=== PATIENT | female | born 1965 | race Caucasian/White ===

== ENCOUNTER → 2019-09-18 | Outpatient (CLI) | payer BC ==
[2019-09-18 07:23] LABS: ALANINE AMINOTRANSFERASE 27 IU/L (0-55); ALKALINE PHOSPHATASE 106 IU/L (40-150); BLOOD UREA NITROGEN 10 mg/dL (7-26); BUN/CREATININE RATIO 13 (6-25); CALCIUM 9.7 mg/dL (8.4-10.2); CARBON DIOXIDE 23 mmol/L (22-29); CHLORIDE 105 mmol/L (98-107); CHOL/HDL RATIO 5.6 (3.0-3.6); CHOLESTEROL 212 MD/DL (0-199); CREATININE, SERUM 0.76 mg/dL (0.57-1.11); EST GLOMERULAR FILTRATION RATE > 60 ML/MIN (60-); GLUCOSE 148 mg/dL (74-118); HDL CHOLESTEROL 38 MG/DL (40-60); SODIUM 140 mmol/L (136-145); TRIGLYCERIDES 446 MG/DL (0-149)
[2019-09-18 07:44] LABS: FREE T4 (FREE THYROXINE) 0.91 ng/dL (0.8-1.8)
[2019-09-19 20:16] LABS: MICROALBUMIN/CREATININE RATIO <7
== END ==
LOC: LAB 06:50
PROVIDERS: ATTEND Internal Medicine
DX: E11.65 Type 2 diabetes mellitus with hyperglycemia (principal)
CPT/HCPCS: 36415; 80053; 80061; 82044; 82570; 83036; 84439; 84443

== ENCOUNTER 2019-12-25 10:01 | Emergency (ER) | payer BC ==
[~2019-12-25] VITALS: Ht 162.6 cm; Wt 79.4 kg
[2019-12-25] MEDS ORDERED: CEPHALEXIN500 MG PO (10:26)
[2019-12-25] MEDS ORDERED: CLINDAMYCIN HC150 MG PO (10:27)
[2019-12-25] MEDS ORDERED: TRIMETHOPRIM/SULFAMETHOXAZOLE 160-800 MG TAB ONE (10:32)
[2019-12-25] MEDS ORDERED: TRIMETHOPRIM/SULFAMETHOXAZOLE 160-800 MG TAB PO ONE (10:45)
--- OUTSIDE RECORDS SUMMARY | 2019-12-25 10:45 | XMS REPORT | Continuity of Care Document ---
Author Author Gerardo Falk [employer] Address Unknown Phone Unavailable Care Team Providers Care Supervisor [employer] Name Role Phone [employer] Unavailable Un available Problems Problem Status Onset Date Classification Date Reported Comments Source CHEST PAIN/SOB Active 09/04/2011 [facility] CHEST PAIN/DM Active 09/04/2011 [facility] Chest pain Active Problem 09/07/2011 [facility] DM - Diabetes mellitus Active Problem 09/07/2011 [facility] Medications Medication Details Route Status Patient Instructions Ordering Provider Order Date Source aspirin 325 mg tablet, enteric coated 325 mg, 1 tab, Route: PO, Drug form: ECTAB, Daily, Start date: 09/05/11 9:00:00, Duration: 30 day, Stop date: 10/04/11 9:00:00 PO No Longer Active [facility] 09/05/2011 [facility] Saline Flush 0.9% 5 ml, Route: IVP, Drug Form: INJ, Q12H, Start date: 09/04/11 21:00:00, Duration: 30 day, Stop date: 10/04/11 9:00:00 IVP No Longer Active [facility] 09/05/2011 [facility] metoprolol tartrate 25 mg, 1 t ab, Route: PO, Drug form: TAB, Q6H, Start date: 09/04/11 18:00:00, Duration: 30 day, Stop date: 10/04/11 12:00:00 PO No Longer Active [facility] 09/04/2011 [facility] nitroglycerin 2% ointment 1 in ch, Route: TOP, Drug Form: OINT, TID, Start date: 09/04/11 17:00:00, Duration: 30 day, Stop date: 10/04/11 13:00:00 TOP No Longer Active [facility] 09/04/2011 [facility] atropine 0.5 mg, 5 mL, Route: IVP, Drug form: INJ, PRN, PRN Bradycardia, Start date: 09/04/11 15:39:00, Duration: 30 day, Stop date: 10/04/11 15:38:00 IVP No Longer Active [facility] 09/04/2011 [facility] acetaminophen 650 mg, Route: P O, Drug form: TAB, ONCE, PRN Pain, Priority: STAT, Start date: 09/04/11 15:06:00, Stop date: 10/04/11 15:05:00 PO No Longer Active [facility] 09/04/2011 [facility] Saline Flush 0.9% 5 ml, Route: IVP, Drug Form: INJ, PRN, PRN Line Flush, Start date: 09/04/11 14:48:00, Duration: 30 day, Stop date: 10/04/11 14:47:00 IVP No Longer Active [facility] 09/04/2011 [facility] ondansetron 4 mg, 2 mL, Route: IVP, Drug form: INJ, Q6H, PRN Nausea & Vomiting, Start date: 09/04/11 14:48:00, Duration: 30 day, Stop date: 10/04/11 14:47:00 IVP No Longer Active [facility] 09/04/2011 [facility] ALPRAZOLam 0.25 mg, 1 tab, Rou te: PO, Drug form: TAB, Q8H, PRN Anxiety, Start date: 09/04/11 14:48:00, Duration: 30 day, Stop date: 10/04/11 14:47:00 PO No Longer Active [facility] 09/04/2011 [facility] morphine Sulfate 2 mg, 1 mL, R oute: IVP, Drug form: INJ, Q3H, PRN Pain Score 4-6, Start date: 09/04/11 14:48:00, Duration: 30 day, Stop date: 10/04/11 14:47:00 IVP No Longer Active [facility] 09/04/2011 [facility] acetaminophen 650 mg, 2 tab, R oute: PO, Drug form: TAB, Q4H, PRN Pain/Fever, Start date: 09/04/11 14:48:00, Duration: 30 day, Stop date: 10/04/11 14:47:00 PO No Longer Active [facility] 09/04/2011 [facility] acetaminophen-hydrocodone 325 mg-5 mg oral tablet 1 tab, Route: PO, Drug Form: TAB, Q4H, PRN Pain Score 1-3, Start date: 09/04/11 14:48:00, Duration: 30 day, Stop date: 10/04/11 14:47:00 PO No Longer Active [facility] 09/04/2011 [facility] Saline Flush 0.9% 5 ml, Route: IVP, Drug Form: INJ, PRN, PRN Line Flush, Start date: 09/04/11 14:46:00, Duration: 30 day, Stop date: 10/04/11 14:45:00 IVP No Longer Active [facility] 09/04/2011 [facility] morphine Sulfate 2 mg, 1 mL, R oute: IVP, Drug form: INJ, Q2H, PRN Pain, Start date: 09/04/11 14:46:00, Duration: 30 day, Stop date: 10/04/11 14:45:00 IVP No Longer Active [facility] 09/04/2011 [facility] nitroglycerin SL Tab 0.4 mg, 1 tab, Route: SL, Drug form: TAB, Q5Min, PRN Chest Pain, Start date: 09/04/11 14:46:00, Duration: 3 doses or times, Stop date: Limited # of times SL No Longer Active [facility] 09/04/2011 [facility] insulin aspart 5 unit, 0.05 mL , Route: SUB-Q, Drug form: SOLN, TID-Before Meals, PRN Blood Glucose Results, Start date: 09/04/11 14:46:00, Duration: 30 day, Stop date: 10/04/11 14:45:00 SUB-Q No Longer Active [facility] 09/04/2011 [facility] Dextrose 50% Syringe 12.5 gm, 25 mL, Route: IVP, Drug Form: INJ, PRN, PRN Blood Glucose Results, Start date: 09/04/11 14:46:00, Duration: 30 day, Stop date: 10/04/11 14:45:00 IVP No Longer Active [facility] 09/04/2011 [facility] glucagon 1 mg, Route: IM, Drug form: PDR/INJ, PRN, PRN Blood Glucose Results, Start date: 09/04/11 14:46:00, Duration: 30 day, Stop date: 10/04/11 14:45:00 IM No Longer Active [facility] 09/04/2011 [facility] metFORmin 500 mg oral tablet 5 00 mg, 1 tab, PO, Daily, 30 tab, Substitution Allowed PO Active 09/04/2011 [facility] metoprolol tartrate 25 mg, Rou te: PO, Drug form: TAB, ONCE, Priority: STAT, Start date: 09/04/11 11:16:00, Stop date: 09/04/11 11:16:00 PO No Longer Active [facility] 09/04/2011 [facility] nitroglycerin 2% ointment 1 in ch, Route: TOP, Drug Form: OINT, ONCE, STAT, Start date: 09/04/11 11:16:00, Stop date: 09/04/11 11:16:00 TOP No Longer Active [facility] Sodium Chloride 0.9% (Bolus) IV 500 mL 500 mL, Rate: 500 ml/hr, Infuse over: 1 hr, Route: IV, kg, Total Volume: 500, Bolus Dose, Priority: STAT, Start date: 09/04/11 11:16:00, Duration: 1 doses or times, Stop date: 09/04/11 12:15:00 IV No Longer Active [facility] 09/04/2011 [facility] Allergies, Adverse Reactions, Alerts No Known Medication Allergies Immunizations No Data Provided for This Section Results Order Name Results Value Reference Range Date Interpretation Comments Source BEDSIDE GLUCOSE TESTING Comment1 Notify RN/ 09/05/2011 NA [facility] BEDSIDE GLUCOSE TESTING Gluc POC Lif scn 141 70 - 99 09/05/2011 [facility] <sup>1</sup>Interpretive Data: Upper Reportable Limit: 200 mg/dL. [facility] CHEMISTRY TSH 3.030 0.360 - 3.740 09/05/2011 Normal [facility] CHEMISTRY Creatinine Lvl 0.9 0.5 - 1.4 09/05/2011 Normal [facility] CHEMISTRY Calcium Lvl 8.5 8.5 - 10.5 09/05/2011 Normal [facility] CHEMISTRY CO2 22 24 - 32 09/05/2011 LOW [facility] CHEMISTRY Glucose Lvl 134 70 - 99 09/05/2011 [facility] <sup>4</sup>Interpretive Data: Adult ref erence range values reflect the clinical guidelines of the [employer]. [facility] CHEMISTRY BUN 8 7 - 22 09/05/2011 Normal [facility] CHEMISTRY Sodium Lvl 138 135 - 145 09/05/2011 Normal [facility] CHEMISTRY Chloride Lvl 102 95 - 109 09/05/2011 [facility] CHEMISTRY Potassium Lvl 3.9 3.5 - 5.1 09/05/2011 Normal [facility] CHEMISTRY AGAP 17.9 10.0 - 20.0 09/05/2011 Normal [facility] CHEMISTRY LDL 58 0 - 129 09/05/2011 Normal [facility] CHEMISTRY Trig 294 0 - 200 09/05/2011 [facility] CHEMISTRY CHD Risk 4.00 3.90 - 5.80 09/05/2011 Normal [facility] CHEMISTRY Chol 156 120 - 200 09/05/2011 Normal [facility] CHEMISTRY HDL 39 >=35 09/05/2011 Normal [facility] HEMATOLOGY MCH 32.4 27.0 - 31.0 09/05/2011 [facility] HEMATOLOGY RDW 12.6 11.5 - 14.5 09/05/2011 Normal [facility] HEMATOLOGY MCHC 33.9 32.0 - 36.0 09/05/2011 Normal [facility] HEMATOLOGY Platelet 275 133 - 450 09/05/2011 Normal [facility] HEMATOLOGY MPV 9.3 7.4 - 10.4 09/05/2011 Normal [facility] HEMATOLOGY MCV 95.8 81.0 - 99.0 09/05/2011 Normal [facility] HEMATOLOGY Hct 37.5 36.0 - 48.0 09/05/2011 Normal [facility] HEMATOLOGY WBC 13.8 3.7 - 10.4 09/05/2011 [facility] HEMATOLOGY RBC 3.92 4.20 - 5.40 09/05/2011 LOW [facility] HEMATOLOGY Hgb 12.7 12.0 - 16.0 09/05/2011 Normal [facility] HEMATOLOGY Lymphocytes # 2.2 1.0 - 5.5 09/05/2011 Normal [facility] HEMATOLOGY Monocytes # 0.7 0.0 - 0.8 09/05/2011 Normal [facility] HEMATOLOGY Eosinophils # 0.1 0.0 - 0.5 09/05/2011 Normal [facility] HEMATOLOGY Basophils # 0.1 0.0 - 0.2 09/05/2011 Normal [facility] HEMATOLOGY Segs 78.4 45.0 - 75.0 09/05/2011 [facility] HEMATOLOGY Lymphocytes 15.8 20.0 - 40.0 09/05/2011 LOW [facility] HEMATOLOGY Monocytes 5.0 2.0 - 12.0 09/05/2011 Normal [facility] HEMATOLOGY Basophils 0.4 0.0 - 1.0 09/05/2011 Normal [facility] HEMATOLOGY Eosinophils 0.4 0.0 - 4.0 09/05/2011 Normal [facility] HEMATOLOGY Segs-Bands # 10.8 1.5 - 8.1 09/05/2011 [facility] URINALYSIS UA Nitrite Negat cedrick (09/05/2011 04:30:00) Negati ve 09/05/2011 Normal [facility] URINALYSIS UA Leuk Est Negat cedrick (09/05/2011 04:30:00) Negati ve 09/05/2011 Normal [facility] URINALYSIS UA Blood Negat cedrick (09/05/2011 04:30:00) Negati ve 09/05/2011 Normal [facility] URINALYSIS UA Urobilinogen 0.2 0.1 - 1.0 09/05/2011 Normal [facility] URINALYSIS UA Bili Negat cedrick *NA* (09/05/2011 04:30:00) Negati ve 09/05/2011 NA [facility] URINALYSIS UA Protein Negat cedrick mg/dL (09/05/2011 04:30:00) Negati ve 09/05/2011 Normal [facility] URINALYSIS UA Glucose Negat cedrick mg/dL (09/05/2011 04:30:00) Negati ve 09/05/2011 Normal [facility] URINALYSIS UA pH 6.0 5.0 - 8.0 09/05/2011 Normal [facility] URINALYSIS UA Ketones Negat cedrick mg/dL *NA* (09/05/2011 04:30:00) Negati ve 09/05/2011 NA [facility] URINALYSIS UA Turbidity Clear (09/05/2011 04:30:00) Clear 09/05/2011 Normal [facility] URINALYSIS UA Spec Grav 1.015 <=1.030 09/05/2011 Normal [facility] URINALYSIS UA Color Yello w *NA* (09/05/2011 04:30:00) Yellow 09/05/2011 NA [facility] URINALYSIS UA Sq Epi None Seen (09/05/2011 04:30:00) Few 09/05/2011 Normal [facility] URINALYSIS UA WBC None Seen (09/05/2011 04:30:00) None S een 09/05/2011 Normal [facility] URINALYSIS UA RBC None Seen (09/05/2011 04:30:00) 0 - 2 09/05/2011 Normal [facility] URINALYSIS UA Bacteria None Seen (09/05/2011 04:30:00) None S een 09/05/2011 Normal [facility] URINALYSIS Micro? Perfo rmed (09/05/2011 04:30:00) 09/05/2011 Normal [facility] CHEMISTRY Troponin-I <0.02 0.00 - 0.40 09/05/2011 Normal [facility] CHEMISTRY Total CK 42 12 - 191 09/05/2011 Normal [facility] BEDSIDE GLUCOSE TESTING Gluc POC Lif scn 112 70 - 99 09/05/2011 [facility] <sup>2</sup>Interpretive Data: Upper Reportable Limit: 200 mg/dL. [facility] BEDSIDE GLUCOSE TESTING Comment1 Notify RN/ 09/05/2011 NA [facility] BEDSIDE GLUCOSE TESTING Comment1 Notify RN/ 09/04/2011 NA [facility] BEDSIDE GLUCOSE TESTING Gluc POC Lif scn 105 70 - 99 09/04/2011 [facility] <sup>3</sup>Interpretive Data: Upper Reportable Limit: 200 mg/dL. [facility] CHEMISTRY Troponin-I <0.02 0.00 - 0.40 09/04/2011 Normal [facility] CHEMISTRY Total CK 68 12 - 191 09/04/2011 Normal [facility] CHEMISTRY CK MB Index <0.9 0.0 - 2.5 09/04/2011 Normal [facility] Magnesium Lvl 1.8 1.8 - 2.4 09/04/2011 Normal [facility] CHEMISTRY CK MB <0.5 0.5 - 3.6 09/04/2011 Normal [facility] CHEMISTRY Total CK 55 12 - 191 09/04/2011 Normal [facility] CHEMISTRY Troponin-I <0.02 0.00 - 0.40 09/04/2011 Normal [facility] CHEMISTRY BNP 10 <=100 09/04/2011 Normal <sup>6</sup>Interpretive Data: Elevated results are in line with increasing severity of congestive heart failure. Minor elevations between 100 and 300 may be seen with Myocardial Ischemia, Sodium retaining drugs, and compensated/treated heart failure. [facility] CHEMISTRY S Preg Negati ve *NA* (09/04/2011 11:14:00) Negati ve 09/04/2011 NA [facility] CHEMISTRY Bili Total 0.4 0.2 - 1.3 09/04/2011 Normal [facility] CHEMISTRY Globulin 3.9 2.0 - 4.0 09/04/2011 Normal [facility] CHEMISTRY AST 14 0 - 37 09/04/2011 Normal [facility] CHEMISTRY A/G Ratio 0.9 0.7 - 1.6 09/04/2011 Normal [facility] CHEMISTRY Total Protein 7.6 6.4 - 8.4 09/04/2011 Normal [facility] CHEMISTRY Alk Phos 93 39 - 136 09/04/2011 Normal [facility] CHEMISTRY ALT 33 0 - 65 09/04/2011 Normal [facility] CHEMISTRY Albumin Lvl 3.7 3.5 - 5.0 09/04/2011 Normal [facility] CHEMISTRY Calcium Lvl 8.9 8.5 - 10.5 09/04/2011 Normal [facility] CHEMISTRY AGAP 15.6 10.0 - 20.0 09/04/2011 Normal [facility] CHEMISTRY B/C Ratio 9 6 - 25 09/04/2011 Normal [facility] CHEMISTRY BUN 8 7 - 22 09/04/2011 Normal [facility] CHEMISTRY Chloride Lvl 106 95 - 109 09/04/2011 Normal [facility] CHEMISTRY Glucose Lvl 114 70 - 99 09/04/2011 [facility] <sup>5</sup>Interpretive Data: Adult ref erence range values reflect the clinical guidelines of the [employer] [employer]. [facility] CHEMISTRY Sodium Lvl 141 135 - 145 09/04/2011 Normal [facility] CHEMISTRY Creatinine Lvl 0.9 0.5 - 1.4 09/04/2011 Normal [facility] CHEMISTRY CO2 23 24 - 32 09/04/2011 LOW [facility] CHEMISTRY Potassium Lvl 3.6 3.5 - 5.1 09/04/2011 Normal [facility] HEMATOLOGY Eosinophils # 0.0 0.0 - 0.5 09/04/2011 Normal [facility] HEMATOLOGY Basophils # 0.0 0.0 - 0.2 09/04/2011 Normal [facility] HEMATOLOGY Lymphocytes # 3.1 1.0 - 5.5 09/04/2011 Normal [facility] HEMATOLOGY Monocytes # 0.5 0.0 - 0.8 09/04/2011 Normal [facility] HEMATOLOGY Basophils 0.4 0.0 - 1.0 09/04/2011 Normal [facility] HEMATOLOGY Segs-Bands # 6.6 1.5 - 8.1 09/04/2011 Normal [facility] HEMATOLOGY Eosinophils 0.4 0.0 - 4.0 09/04/2011 Normal [facility] HEMATOLOGY Lymphocytes 29.9 20.0 - 40.0 09/04/2011 Normal [facility] HEMATOLOGY Monocytes 5.0 2.0 - 12.0 09/04/2011 Normal [facility] HEMATOLOGY Segs 64.3 45.0 - 75.0 09/04/2011 Normal [facility] HEMATOLOGY INR 0.96 0.85 - 1.17 09/04/2011 Normal <sup>7</sup>Interpretive Data: RECOMMEND ED RANGES FOR PROTIME INR: 2.0-3.0 for most medical and surgical thromboembolic states. 2.5-3.5 for artificial heart valves and recurrent embolism. INR SHOULD BE USED ONLY FOR PATIENTS ON STABLE ANTICOAGULANT THERAPY. [facility] HEMATOLOGY PT 12.8 12.0 - 14.7 09/04/2011 Normal [facility] PTT 26.1 22.9 - 35.8 09/04/2011 Normal <sup>8</sup>Interpretive Data: Heparin T herapeutic Range: 57 - 92 Seconds [facility] RBC 4.28 4.20 - 5.40 09/04/2011 Normal [facility] WBC 10.2 3.7 - 10.4 09/04/2011 Normal [facility] Hct 41.1 36.0 - 48.0 09/04/2011 Normal [facility] HEMATOLOGY Hgb 13.8 12.0 - 16.0 09/04/2011 Normal [facility] MCHC 33.6 32.0 - 36.0 09/04/2011 Normal [facility] MCH 32.3 27.0 - 31.0 09/04/2011 HI [facility] HEMATOLOGY MCV 96.1 81.0 - 99.0 09/04/2011 Normal [facility] MPV 9.5 7.4 - 10.4 09/04/2011 Normal [facility] Platelet 311 133 - 450 09/04/2011 Normal [facility] RDW 12.6 11.5 - 14.5 09/04/2011 Normal [facility] Pathology Reports No Data Provided for This Section Diagnostic Reports No Data Provided for This Section Consultation Notes No Data Provided for This Section Discharge Summaries No Data Provided for This Section History and Physicals No Data Provided for This Section Vital Signs Vital Sign Value Date Comments Source Temperature Oral (F) 98.5 F 09/05/2011 [facility] Heart Rate 85 09/05/2011 [facility] Respitory Rate 20 09/05/2011 [facility] Systolic (mm Hg) 108 09/05/2011 [facility] Diastolic (mm Hg) 75 09/05/2011 [facility] Temperature Oral (F) 98.8 F 09/05/2011 [facility] Heart Rate 71 09/05/2011 [facility] Respitory Rate 18 09/05/2011 [facility] Systolic (mm Hg) 117 09/05/2011 [facility] Diastolic (mm Hg) 75 09/05/2011 [facility] Heart Rate 71 09/05/2011 [facility] Systolic (mm Hg) 109 09/05/2011 [facility] Respitory Rate 18 09/05/2011 [facility] Diastolic (mm Hg) 65 09/05/2011 [facility] Temperature Oral (F) 98.3 F 09/05/2011 [facility] Height 162.56 cm 09/04/2011 [facility] Weight 79.545 09/04/2011 [facility] Encounters Location Location Details Encounter Type Encounter Number Reason For Visit Attending Provider ADM Date DC Date Status Source [facility] OU [id number] CHEST PAIN/DM GUANACO CABRERA 09/04/2011 09/05/2011 Active [facility] Procedures No Data Provided for This Section Assessment and Plan No Data Provided for This Section Plan of Care No Data Provided for This Section Social History No Data Provided for This Section Family History No Data Provided for This Section Advance Directives No Data Provided for This Section Functional Status No Data Provided for This Section
--- OUTSIDE RECORDS SUMMARY | 2019-12-25 10:45 | XMS REPORT | Continuity of Care Document ---
Author Author [facility] t Organization [facility] Address [address] [place] [address] Phone Unavailable Care Team Providers Care [employer] Setter Name Role Phone NO, PCP PCP Unavailable SAADIA MONET Unavailable Payers Payer Name Policy Type Policy Number Effective Date Expiration Date S morena [employer] [facility] [id number] 2019 00:00:00 [facility] Problems Condition Name Condition Details Condition Category Status Onset Date Resolution Date Last Treatment Date Treating Clinician Comments Source CHEST PAIN/SOB CHES T PAIN/SOB Active 09/04/2011 [facility] Active 2011-09-04 04:00:00 2011-09-04 13:49:00 Gerardo Falk CHEST PAIN/DM CHES T PAIN/DM Active 09/04/2011 [facility] Active 2011-09-04 04:00:00 2011-09-07 07:46:00 Gerardo Falk Chest pain Ches t pain Active Problem 09/07/2011 [facility] Problem Active 2011-09-07 09:21:36 Oh loretta Falk DM - Diabetes mellitus DM - Diabetes mellitus Active Problem 09/07/2011 [facility] Problem Active 2011-09-07 09:21:3 6 Gerardo Falk Allergies, Adverse Reactions, Alerts Allergy Name Allergy Type Status Severity Reaction(s) Onset Date Inacti ve Date Treating Clinician Comments Source No Known Allergies DA Active U 2019-02-28 00:00:00 [facility] No Known Allergies DA Active U 2016-11-01 00:00:00 [facility] Medications Ordered Medication Name Filled Medication Name Start Date Stop Da te Current Medication? Ordering Clinician Indication Dosage Frequency Signature (SIG) Comments Components Source aspirin 325 mg tablet, enteric coated 2011-09-05 14:00:00 No Xavier Tayyan 325 mg, 1 tab, Route: PO, Dr ug form: ECTAB, Daily, Start date: 09/05/11 9:00:00, Duration: 30 day, Stop date: 10/04/11 9:00:00 Gerardo Falk Saline Flush 0.9% 2011-09-05 02:00:00 No Xavier Tayyan 5 ml, Route: IVP, Drug Form: INJ, Q12H, Start date: 09/04/11 21:00:00, Duration: 30 day, Stop date: 10/04/11 9:00:00 Gerardo Falk metoprolol tartrate 2011-09-04 23:00:00 No Xavier Tayyan 25 mg, 1 tab, Route: PO, Drug form: TAB, Q6H, Start date: 09/04/11 18:00:00, Duration: 30 day, Stop date: 10/04/11 12:00:00 [facility] nitroglycerin 2% ointment 2011-09-04 22:00:00 No Xavier Tayyan 1 inch, Route: TOP, Drug Form: OINT, TID, Start date: 09/04/11 17:00:00, Duration: 30 day, Stop date: 10/04/11 13:00:00 Katherine Limon atropine 2011-09-04 20:39:00 No Xavier Tayyan 0.5 mg, 5 mL, Route: IVP, Drug form: INJ, PRN, PRN Bradycardia, Start date: 09/04/11 15:39:00, Duration: 30 day, Stop date: 10/04/11 15:38:00 Juan Manuel Falk acetaminophen 2011-09-04 20:06:00 No Howard Grande 650 mg, Route: PO, Drug form: TAB, ONCE, PRN Pain, Priority: STAT, Start date: 09/04/11 15:06:00, Stop date: 10/04/11 15:05:00 [facility] Saline Flush 0.9% 2011-09-04 19:48:00 No Xavier Tayyan 5 ml, Route: IVP, Drug Form: INJ, PRN, PRN Line Flush, Start date: 09/04/11 14:48:00, Duration: 30 day, Stop date: 10/04/11 14:47:00 [facility] ondansetron 2011-09-04 19:48:00 No Xavier Tayyan 4 mg, 2 mL, Route: IVP, Drug form: INJ, Q6H, PRN Nausea & Vomiting, Start date: 09/04/11 14:48:00, Duration: 30 day, Stop date: 10/04/11 14:47:00 [facility] ALPRAZOLam 2011-09-04 19:48:00 No Xavier Tayyan 0.25 mg, 1 tab, Route: PO, Drug form: TAB, Q8H, PRN Anxiety, Start date: 09/04/11 14:48:00, Duration: 30 day, Stop date: 10/04/11 14:47:00 [facility] morphine Sulfate 2011-09-04 19:48:00 No Xavier Tayyan 2 mg, 1 mL, Route: IVP, Drug form: INJ, Q3H, PRN Pain Score 4-6, Start date: 09/04/11 14:48:00, Duration: 30 day, Stop date: 10/04/11 14:47:00 [facility] acetaminophen 2011-09-04 19:48:00 No Xavier Tayyan 650 mg, 2 tab, Route: PO, Drug form: TAB, Q4H, PRN Pain/Fever, Start date: 09/04/11 14:48:00, Duration: 30 day, Stop date: 10/04/11 14:47:00 [facility] acetaminophen-hydrocodone 325 mg-5 mg oral tablet 19:48:00 No Xavier Tayyan 1 tab, Route: PO , Drug Form: TAB, Q4H, PRN Pain Score 1-3, Start date: 09/04/11 14:48:00, Duration: 30 day, Stop date: 10/04/11 14:47:00 [facility] Saline Flush 0.9% 2011-09-04 19:46:00 No Xavier Tayyan 5 ml, Route: IVP, Drug Form: INJ, PRN, PRN Line Flush, Start date: 09/04/11 14:46:00, Duration: 30 day, Stop date: 10/04/11 14:45:00 [facility] morphine Sulfate 2011-09-04 19:46:00 No Xavier Tayyan 2 mg, 1 mL, Route: IVP, Drug form: INJ, Q2H, PRN Pain, Start date: 09/04/11 14:46:00, Duration: 30 day, Stop date: 10/04/11 14:45:00 [facility] nitroglycerin SL Tab 2011-09-04 19:46:00 No Xavier Tayya n 0.4 mg, 1 tab, Route: SL, Drug form: TAB, Q5Min, PRN Chest Pain, Start date: 09/04/11 14:46:00, Duration: 3 doses or times, Stop date: Limited # of times [facility] insulin aspart 2011-09-04 19:46:00 No Xavier Tayyan 5 unit, 0.05 mL, Route: SUB-Q, Drug form: SOLN, TID-Before Meals, PRN Blood Glucose Results, Start date: 09/04/11 14:46:00, Duration: 30 day, Stop date: 10/04/11 14:45:00 [facility] Dextrose 50% Syringe 2011-09-04 19:46:00 No Xavier Tayya n 12.5 gm, 25 mL, Route: IVP, Drug Form: INJ, PRN, PRN Blood Glucose Results, Start date: 09/04/11 14:46:00, Duration: 30 day, Stop date: 10/04/11 14:45:00 [facility] glucagon 2011-09-04 19:46:00 No Xavier Tayyan 1 mg, Route: IM, Drug form: PDR/INJ, PRN, PRN Blood Glucose Results, Start date: 09/04/11 14:46:00, Duration: 30 day, Stop date: 10/04/11 14:45:00 [facility] metFORmin 500 mg oral tablet 2011-09-04 16:27:39 Yes 500 mg, 1 tab, PO, Daily, 30 tab, Substitution Allowed Gerardo Falk metoprolol tartrate 2011-09-04 16:16:00 No Howard Aldrich erg 25 mg, Route: PO, Drug form: TAB, ONCE, Priority: STAT, Start date: 09/04/11 11:16:00, Stop date: 09/04/11 11:16:00 Gerardo Morales rmmichael nitroglycerin 2% ointment 2011-09-04 16:16:00 No Howard Grande 1 inch, Route: TOP, Drug Form: OINT, ONCE, STAT, Start date: 09/04/11 11:16:00, Stop date: 09/04/11 11:16:00 Gerardo harris Sodium Chloride 0.9% (Bolus) IV 500 mL 2011-09-04 16:16:00 No Howard Grande 500 mL, Rate: 50 0 ml/hr, Infuse over: 1 hr, Route: IV, kg, Total Volume: 500, Bolus Dose, Priority: STAT, Start date: 09/04/11 11:16:00, Duration: 1 doses or times, Stop date: 09/04/11 12:15:00 [facility] Vital Signs Vital Name Observation Time Observation Value Comments Source Temperature Oral (F) 2011-09-05 13:00:00 98.5 F [facility] Heart Rate 2011-09-05 13:00:00 [facility] Respitory Rate 2011-09-05 13:00:00 [facility] Systolic (mm Hg) 2011-09-05 13:00:00 Mika rial [facility] Diastolic (mm Hg) 2011-09-05 13:00:00 Mem orial [place] Temperature Oral (F) 2011-09-05 09:00:00 98.8 F [facility] Heart Rate 2011-09-05 09:00:00 [facility] Respitory Rate 2011-09-05 09:00:00 [facility] Systolic (mm Hg) 2011-09-05 09:00:00 Mika [facility] Diastolic (mm Hg) 2011-09-05 09:00:00 Mem orial [place] Heart Rate 2011-09-05 05:00:00 [facility] Systolic (mm Hg) 2011-09-05 05:00:00 Mika rial [place] Respitory Rate 2011-09-05 05:00:00 [facility] Diastolic (mm Hg) 2011-09-05 05:00:00 Juan Manuel messinaal [place] Temperature Oral (F) 2011-09-05 05:00:00 98.3 F Gerardo Falk Height 2011-09-04 15:56:00 162.56 cm Gerardo Falk Weight 2011-09-04 15:56:00 [facility] Procedures Procedure Date / Time Performed Performing Clinician Sourc e US Gallbladder 2019-05-22 00:00:00 RENÉ EDWARDS [facility] Encounters Start Date/Time End Date/Time [facility] ID Source 2019-05-22 10:31:00 2019-05-22 14:00:00 Departed Emergency Room [address] [facility] [id number] [facility] Results Test Description Test Time Test Comments Results Result Comments Source Troponin I 2019-05-22 13:49:00 Test Item Troponin I (test code = WSR1274) 0.010 0-0.300 [facility] [id number] 13:32:00* Test Item Value Reference Range Interpretation Comments Sodium Level (test code = 2951-2) 136 136-145 [facility] HospitalPotassium [id number] 13:32:00* Test Item Value Reference Range Interpretation Comments Potassium Level (test code = 2823-3) 4.3 3.5-5.1 [facility] HospitalChloride [id number] 13:32:00* Test Item Value Reference Range Interpretation Comments Chloride Level (test code = 2075-0) 100 98-107 [facility] HospitalCarbon Dioxide [id number] 13:32:00* Test Item Value Reference Range Interpretation Comments Carbon Dioxide Level (test code = 2028-9) 24 22-29 [facility] HospitalAnion [id number] 13:32:00* Test Item Value Reference Range Interpretation Comments Anion Gap (test code = 02698-4) 16.3 8-16 H [facility] HospitalBlood Urea [id number] 13:32:00* Test Item Value Reference Range Interpretation Comments Blood Urea Nitrogen (test code = 3094-0) 9 7-26 [facility] HospitalCreatinine2020-01-16 13:32:00* Test Item Value Reference Range Interpretation Comments Creatinine (test code = 2160-0) 0.97 0.57-1.11 [facility] HospitalBUN/Creatinine Fysrv4274-74-79 13:32:00* Test Item Value Reference Range Interpretation Comments BUN/Creatinine Ratio (test code = 3097-3) 9 6-25 [facility] HospitalEstimat Glomerular Filtration Rate 2019-05-22 13:32:00* Test Item Value Reference Range Interpretation Comments Estimat Glomerular Filtration Rate (test code = 314109533) 60 >60 Ranges were taken from the National Kidney Disease Education Program and the [facility] literature.Reference ranges:60 or greater: Jpnzfp06-33 ( for 3 consecutive months): Chronic kidney disease 15 or less: Kidney failureRolling Plains Memorial HospitalGlucose Fukkw5832-11-61 13:32:00* Test Item Value Reference Range Interpretation Comments Glucose Level (test code = KOM5891) 227 74-118 H [facility] HospitalCalcium Auext2093-43-21 13:32:00* Test Item Value Reference Range Interpretation Comments Calcium Level (test code = 56007-7) 10.0 8.4-10.2 [facility] HospitalTotal Uiphkfhkk5475-29-31 13:32:00* Test Item Value Reference Range Interpretation Comments Total Bilirubin (test code = 1975-2) 0.3 0.2-1.2 [facility] HospitalAspartate Amino Transf (AST/SGOT) 2019-05-22 13:32:00* Test Item Value Reference Range Interpretation Comments Aspartate Amino Transf (AST/SGOT) (test code = Aspartate Amino Transf (AST/SGOT)) 58 5-34 H [facility] HospitalAlanine Aminotransferase (ALT/SGPT) 2019-05-22 13:32:00* Test Item Value Reference Range Interpretation Comments Alanine Aminotransferase (ALT/SGPT) (test code = 1742-6) 60 0-55 H [facility] HospitalTotal Cqeyrwe5074-37-41 13:32:00* Test Item Value Reference Range Interpretation Comments Total Protein (test code = 2885-2) 7.6 6.5-8.1 [facility] HospitalAlbumin2020-01-16 13:32:00* Test Item Value Reference Range Interpretation Comments Albumin (test code = 1751-7) 4.2 3.5-5.0 [facility] HospitalGlobulin2020-01-16 13:32:00* Test Item Value Reference Range Interpretation Comments Globulin (test code = 43183-6) 3.4 2.3-3.5 [facility] HospitalAlbumin/Globulin Pwqyv4328-30-57 13:32:00 * Test Item Value Reference Range Interpretation Comments Albumin/Globulin Ratio (test code = 1759-0) 1.2 0.8-2.0 [facility] HospitalAlkaline Ekkwgfjfhzm1492-91-16 13:32:00* Test Item Value Reference Range Interpretation Comments Alkaline Phosphatase (test code = 6768-6) 131 40-150 [facility] HospitalAmylase Zyvof2297-40-77 13:32:00* Test Item Value Reference Range Interpretation Comments Amylase Level (test code = 1798-8) 23 25-125 L [facility] HospitalLipase2020-01-16 13:32:00* Test Item Value Reference Range Interpretation Comments Lipase (test code = 3040-3) 33 8-78 [facility] HospitalWhite Blood Hgein9121-37-65 13:10:00* Test Item Value Reference Range Interpretation Comments White Blood Count (test code = 6690-2) 8.79 4.8-10.8 [facility] HospitalRed Blood Hzlay1829-98-75 13:10:00* Test Item Value Reference Range Interpretation Comments Red Blood Count (test code = 789-8) 4.84 3.6-5.1 [facility] HospitalHemoglobin2020-01-16 13:10:00* Test Item Value Reference Range Interpretation Comments Hemoglobin (test code = 94793-9) 16.0 12.0-16.0 [facility] HospitalHematocrit2020-01-16 13:10:00* Test Item Value Reference Range Interpretation Comments Hematocrit (test code = 4544-3) 45.9 34.2-44.1 H [facility] HospitalMean Corpuscular Pimeor1201-37-41 13:10:00* Test Item Value Reference Range Interpretation Comments Mean Corpuscular Volume (test code = 787-2) 94.8 81-99 [facility] HospitalMean Corpuscular Twpjrsizpf2628-21-43 13:10:00* Test Item Value Reference Range Interpretation Comments Mean Corpuscular Hemoglobin (test code = 785-6) 33.1 28-32 H [facility] HospitalMean Corpuscular Hemoglobin Concent 2019-05-22 13:10:00* Test Item Value Reference Range Interpretation Comments Mean Corpuscular Hemoglobin Concent (test code = 786-4) 34.9 31-35 [facility] HospitalRed Cell Distribution Hhftt7119-90-22 13:10:00* Test Item Value Reference Range Interpretation Comments Red Cell Distribution Width (test code = 96242-7) 12.4 11.7 -14.4 [facility] HospitalPlatelet Ujcss8101-51-66 13:10:00* Test Item Value Reference Range Interpretation Comments Platelet Count (test code = 777-3) 267 140-360 [facility] HospitalNeutrophils (%) (Auto)2019-05-22 13:10:00 * Test Item Value Reference Range Interpretation Comments Neutrophils (%) (Auto) (test code = 64405-4) 58.8 38.7-80.0 [facility] HospitalLymphocytes (%) (Auto)2019-05-22 13:10:00 * Test Item Value Reference Range Interpretation Comments Lymphocytes (%) (Auto) (test code = 736-9) 32.2 18.0-39.1 [facility] HospitalMonocytes (%) (Auto)2019-05-22 13:10:00* Test Item Value Reference Range Interpretation Comments Monocytes (%) (Auto) (test code = 5905-5) 5.8 4.4-11.3 [facility] HospitalEosinophils (%) (Auto)2019-05-22 13:10:00 * Test Item Value Reference Range Interpretation Comments Eosinophils (%) (Auto) (test code = 713-8) 1.8 0.0-6.0 [facility] HospitalBasophils (%) (Auto)2019-05-22 13:10:00* Test Item Value Reference Range Interpretation Comments Basophils (%) (Auto) (test code = 706-2) 0.8 0.0-1.0 [facility] HospitalIM GRANULOCYTES %2019-05-22 13:10:00* Test Item Value Reference Range Interpretation Comments IM GRANULOCYTES % (test code = IM GRANULOCYTES %) 0.6 0.0- 1.0 [facility] HospitalNeutrophils # (Auto)2019-05-22 13:10:00* Test Item Value Reference Range Interpretation Comments Neutrophils # (Auto) (test code = 751-8) 5.2 2.1-6.9 [facility] HospitalLymphocytes # (Auto)2019-05-22 13:10:00* Test Item Value Reference Range Interpretation Comments Lymphocytes # (Auto) (test code = 43593-6) 2.8 1.0-3.2 [facility] HospitalMonocytes # (Auto)2019-05-22 13:10:00* Test Item Value Reference Range Interpretation Comments Monocytes # (Auto) (test code = 742-7) 0.5 0.2-0.8 [facility] HospitalEosinophils # (Auto)2019-05-22 13:10:00* Test Item Value Reference Range Interpretation Comments Eosinophils # (Auto) (test code = 711-2) 0.2 0.0-0.4 [facility] HospitalBasophils # (Auto)2019-05-22 13:10:00* Test Item Value Reference Range Interpretation Comments Basophils # (Auto) (test code = 704-7) 0.1 0.0-0.1 [facility] HospitalAbsolute Immature Granulocyte (auto 2019-05-22 13:10:00* Test Item Value Reference Range Interpretation Comments Absolute Immature Granulocyte (auto (angelica t code = Absolute Immature Granulocyte (auto) 0.05 0-0.1 [facility] [id number] 12:54:00* Test Item Value Reference Range Interpretation Comments Urine Test (test code = 2106-3) NEGATIVE NEGATIVE [facility] HospitalUS NABLSUEMUBU2338-74-08 11:58:00 [facility] [address] [address] Patient Name: CARLOTTA SUN MR #: [id number] : Age/Sex: 53/F Req #: [id number] Adm Physician: Ordered by: RENÉ EDWARDS CLOTHER IN Report #: [id number] Location: ER Room/Bed: Procedure: [id number] US/US GALLBLADDER Exam Date: 05/22/19 Exam Time : 1115 REPORT STATUS: Signed Right upper quadrant abdominal ultrasound, 05/22/2019. History: Right up per quadrant pain. Comparison: None available. Discussion: Transverse and longitudinal images of the right upper quadrant of the abdomen were obtain ed demonstrating a liver of normal size but diffusely increased echogenicity m easuring 13.4 cm in length. There is no focal hepatic abnormality. There is n o evidence of a focal hepatic mass. The portal vein is patent with hepatopetal flow and is within normal limits measuring 13 mm in diameter. The biliary tree is within normal limits with the common bile duct measuring 3 mm in diameter. The gallbladder is normal without evidence of shadowing stones, w all thickening, or pericholecystic fluid. The sonographic Reagan's sign was ne gative. The right kidney is normal in size and echogenicity without ev idence of hydronephrosis, stones, or mass and measures 9.7 cm in length. The p ancreatic <body and tail> are visualized and are normal in appearance. The abdominal aorta is within normal limits. There is no evidence of free fluid. IMPRESSION: Diffuse fatty infiltration of the liver without focal hepatic abnormality. Otherwise unremarkable exam. No evidence of cholelithiasis. Signed by: René Urbina on 05/22/2019 12:00 PM Dictated By: RENÉ URBINA MD 1200 Transcribed By: ROBERT on 05/22/19 1200 COPY TO: RENÉ EDWARDS NP Urine [id number] 11:53:00* Test Item Value Reference Range Interpretation Comments Urine WBC (test code = 5821-4) 6-10 0-5 H [facility] HospitalUrine [id number] 11:53:00* Test Item Value Reference Range Interpretation Comments Urine RBC (test code = 05086-2) 0-5 0-5 [facility] HospitalU[facility] Tbhcdvws2628-35-26 11:53:00* Test Item Value Reference Range Interpretation Comments Urine Bacteria (test code = 97170-3) MANY NONE H [facility] HospitalUrine Epithelial Bnxzi8253-64-02 11:53:00 * Test Item Value Reference Range Interpretation Comments Urine Epithelial Cells (test code = 13866-9) MANY NONE [facility] HospitalUrine [id number] 11:45:00* Test Item Value Reference Range Interpretation Comments Urine Color (test code = 5778-6) YELLOW YELLOW [facility] HospitalUrine Yefdhup1125-98-01 11:45:00* Test Item Value Reference Range Interpretation Comments Urine Clarity (test code = 26065-5) SL CLOUDY CLEAR [facility] HospitalUrine Specific Jpnbwhp0247-08-37 11:45:00 * Test Item Value Reference Range Interpretation Comments Urine Specific [place] (test code = 5811-5) 1.020 1.010-1.02 5 [facility] HospitalUrine [id number] 11:45:00* Test Item Value Reference Range Interpretation Comments Urine pH (test code = 07728-9) 5 5-7 [facility] HospitalU[facility] Leukocyte Juldzbyw9758-17-80 11:45:00* Test Item Value Reference Range Interpretation Comments Urine Leukocyte Esterase (test code = 5799-2) NEGATIVE NEGATIVE [facility] HospitalUrine Eyfuvtv6561-07-97 11:45:00* Test Item Value Reference Range Interpretation Comments Urine Nitrite (test code = 07338-7) POSITIVE NEGATIVE [facility] HospitalUrine Jrzveta2889-75-91 11:45:00* Test Item Value Reference Range Interpretation Comments Urine Protein (test code = 5804-0) NEGATIVE NEGATIVE [facility] Glucose (UA)2019-05-22 11:45:00* Test Item Value Reference Range Interpretation Comments Urine Glucose (UA) (test code = 2349-9) 2+ NEGATIVE H [facility] HospitalUrine Cyyxeku9267-95-57 11:45:00* Test Item Value Reference Range Interpretation Comments Urine Ketones (test code = 26017-7) TRACE NEGATIVE H [facility] HospitalUrine Xyijpoosubjl1414-11-38 11:45:00* Test Item Value Reference Range Interpretation Comments Urine Urobilinogen (test code = 45305-5) 0.2 0.2-1 [facility] HospitalUrine Xmmugmasf2517-24-55 11:45:00* Test Item Value Reference Range Interpretation Comments Urine Bilirubin (test code = 1978-6) NEGATIVE NEGATIVE [facility] HospitalUrine Gvbuj1949-24-60 11:45:00* Test Item Value Reference Range Interpretation Comments Urine Blood (test code = 18316-0) NEGATIVE NEGATIVE [facility] HospitalGLUBED2019-10-25 07:31:00* Test Item Value Reference Range Interpretation Comments GLUBED (test code = GLUBED) 155 mg/dL 60-125 H LACTIC ACID [id number] 20:44:00* Test Item Value Reference Range Interpretation Comments LACTIC ACID REPEAT (test code = LACTR) 2.2 mmol/l 0.4-1.9 H NAZANIN CHACKO WILL COLLECT G.LAB.KAF 01/29/19 2005- CT ABD PELVIS W/[id number] 19:29:00 Name: CARLOTTA SUN [facility] [place] : 1965 Age/S: 53 / F [address] [place] [address] Unit #: [id number] Loc: [place] [address] Phys: Jean-Paul Coffey MD Acct: [id number] Dis Date: Status: REG ER PHONE #: [phone] Exam Date: 01/29/20191931 FAX #: [phone] Reason: right sided pain, vomiting, diarrhea + mucous EXAMS: CPT CODE: [id number] CT ABD PELVIS W/CONT 76500 PROCEDURE: CT ABDOMEN AND PELVIS WITH CONTRAST INDICATION: Right lower quadrant and right upper quadrant abdominal pain with nausea and vomiting. Patient has history of colon cancer. COMPARISON: Yesterday's CT abdomen pelvis TECHNIQUE: Helical imaging was performed diaphragm through the symphysis with multiplanar reconstructions. IV CONTRAST: 100 mL Isovue-300. GI CONTRAST: None CT imaging performed at this location utilizes radiation dose optimization techniques which include one or more of the following: - Automated exposure control -Adjustment of the mA and/or kV according to patient size -Use of iterative reconstruction technique CT Radiation Dose DLP 616.95 mGy-cm FINDINGS: LOWER CHEST: The lung bases are clear. LIVER: There is diffusely diminished attenuation throughout the hepatic parenchyma. Liver size and contour normal. GALLBLADDER: Normal. No bile duct dilatation SPLEEN: Normal. PANCREAS: Normal. ADRENALS: Normal. KIDNEYS: Normal. BOWEL: Ileocolonic anastomosis noted right lower quadrant. Large and small bowel otherwise normal. PE RITONEUM: No free intraperitoneal fluid or air. RETROPERITONEUM: N o adenopathy. The aorta is normal. PELVIS: No pelvic mass. The uri nary bladder is normal. MUSCULOSKELETAL: The skeleton is intact. PAGE 1 Signed Report (CLAUDE NUED) Name: CARLOTTA SUN [facility] [place] : 1965 Age/S: 53 / F [address] [place] [address] Unit #: [id number] Loc: [place] [address] Phys: Jean-Paul Max MD Acct: [id number] Dis Date: Status: REG ER PHON E #: [phone] Exam Date: 01/29/20191931 FAX #: Reason: right sided pain, vomiting, diarrhea + mucous EXAMS : CPT CODE: [id number] CT ABD PELVIS W/CONT 65872 <Continued> IMPRESSION: 1. Hepatic steatosis. 2. Evidence for partial colectomy. 3. Otherwise normal exam. END IMPRESSION WR1-H at 1929 Reported and signed by: Victoriano Murphy M.D. CC: Jean-Paul Coffey MD Technologist:Geno Anguiano RT(R) CTDI: DLP: Trnscb Date/Time: 01/29/2019 (1928) LeviRTB Orig Print D/T: S: 01/29/2019 (1932) PAGE 2 Signed Report CBC W/AUTO [id number] 18:24:00* Test Item Value Reference Range Interpretation Comments WHITE BLOOD CELL (test code = WBC) 9.05 x10 3/uL 4.5-11.0 N RED BLOOD CELL (test code = RBC) 3.70 x10 6/uL 3.54-5.02 N HEMOGLOBIN (test code = HGB) 12.2 g/dL 11.0-15.0 N HEMATOCRIT (test code = HCT) 36.9 % 33.0-45.0 N MEAN CELL VOLUME (test code = MCV) 99.7 fL 81.0-99.0 H MEAN CELL HGB (test code = MCH) 33.0 pg 27.0-33.0 N MEAN CELL HGB CONCETRATION (test code = MCHC) 33.1 g/dL 33.0-37. 0 N RED CELL DISTRIBUTION WIDTH CV (test code = RDW) 12.3 % 11.5- 14.5 N RED CELL DISTRIBUTION WIDTH SD (test code = RDW-SD) 45.2 fL 37 .0-54.0 N PLATELET COUNT (test code = PLT) 230 x10 3/uL 150-400 N MEAN PLATELET VOLUME (test code = MPV) 11.1 fL 7.0-9.0 H NEUTROPHIL % (test code = NT%) 60.4 % 56.0-77.0 N IMMATURE GRANULOCYTE % (test code = IG%) 0.7 % 0.0-2.0 N LYMPHOCYTE % (test code = LY%) 30.6 % 14.0-32.0 N MONOCYTE % (test code = MO%) 6.3 % 4.8-9.0 N EOSINOPHIL % (test code = EO%) 1.2 % 0.3-3.7 N BASOPHIL % (test code = BA%) 0.8 % 0.0-2.0 N NUCLEATED RBC % (test code = NRBC%) 0.0 % 0-0 N NEUTROPHIL # (test code = NT#) 5.47 x10 3/uL 2.0-7.6 N IMMATURE GRANULOCYTE # (test code = IG#) 0.06 x10 3/uL 0.00-0.03 H LYMPHOCYTE # (test code = LY#) 2.77 x10 3/uL 1.0-3.8 N MONOCYTE # (test code = MO#) 0.57 x10 3/uL 0.1-0.8 N EOSINOPHIL # (test code = EO#) 0.11 x10 3/uL 0.0-0.2 N BASOPHIL # (test code = BA#) 0.07 x10 3/uL 0.0-0.2 N NUCLEATED RBC # (test code = NRBC#) 0.00 x10 3/uL 0.0-0.1 N MANUAL DIFF REQUIRED (test code = MDIFF) NO COMPREHENSIVE METABOLIC [id number] 18:24:00* Test Item Value Reference Range Interpretation Comments SODIUM (test code = NA) 141 mEq/L 134-147 N POTASSIUM (test code = K) 3.8 mEq/L 3.4-5.0 N CHLORIDE (test code = CL) 111 mEq/L 100-108 H CARBON DIOXIDE (test code = CO2) 24 mEq/L 21-33 N ANION GAP (test code = GAP) 10 0-20 N GLUCOSE (test code = GLU) 169 mg/dL 70-110 H BLOOD UREA NITROGEN (test code = BUN) 5 mg/dL 7-18 L GLOMERULAR FILTRATION RATE (test code = GFR) 87.5 90-95 L Units of measure = ml/min/1.73 m2 CREATININE (test code = CREAT) 0.7 mg/dL 0.6-1.3 N TOTAL PROTEIN (test code = PROT) 6.3 g/dL 6.4-8.2 L ALBUMIN (test code = ALB) 3.20 g/dL 3.4-5.0 L CALCIUM (test code = CA) 8.4 mg/dL 8.0-10.5 N BILIRUBIN TOTAL (test code = BILT) 0.2 MG/DL <1.5 N SGOT/AST (test code = AST) 31 IUnit/L 15-37 N SGPT/ALT (test code = ALT) 44 IUnit/L 15-65 N ALKALINE PHOSPHATASE TOTAL (test code = ALKP) 87 IUnit/L 20-125 N [id number] 18:24:00* Test Item Value Reference Range Interpretation Comments LIPASE (test code = LIP) 102 IUnit/L 73-393 N HCG SERUM [id number] 18:24:00* Test Item Value Reference Range Interpretation Comments HCG SERUM QUAL (test code = HCGQL) SERUM NEGATIVE NEGATIVE COMPREHENSIVE METABOLIC [id number] 18:15:00* Test Item Value Reference Range Interpretation Comments SODIUM (test code = NA) 141 mEq/L 134-147 N POTASSIUM (test code = K) 3.8 mEq/L 3.4-5.0 N CHLORIDE (test code = CL) 111 mEq/L 100-108 H CARBON DIOXIDE (test code = CO2) 24 mEq/L 21-33 N ANION GAP (test code = GAP) 10 0-20 N GLUCOSE (test code = GLU) 169 mg/dL 70-110 H BLOOD UREA NITROGEN (test code = BUN) 5 mg/dL 7-18 L GLOMERULAR FILTRATION RATE (test code = GFR) 90-95 CREATININE (test code = CREAT) mg/dL 0.6-1.3 TOTAL PROTEIN (test code = PROT) g/dL 6.4-8.2 ALBUMIN (test code = ALB) g/dL 3.4-5.0 CALCIUM (test code = CA) 8.4 mg/dL 8.0-10.5 N BILIRUBIN TOTAL (test code = BILT) MG/DL <1.5 SGOT/AST (test code = AST) IUnit/L 15-37 SGPT/ALT (test code = ALT) IUnit/L 15-65 ALKALINE PHOSPHATASE TOTAL (test code = ALKP) IUnit/L 20-125 [id number] 18:15:00* Test Item Value Reference Range Interpretation Comments LIPASE (test code = LIP) 102 IUnit/L 73-393 N HCG SERUM [id number] 18:15:00* Test Item Value Reference Range Interpretation Comments HCG SERUM QUAL (test code = HCGQL) SERUM NEGATIVE NEGATIVE COMPREHENSIVE METABOLIC [id number] 18:14:00* Test Item Value Reference Range Interpretation Comments SODIUM (test code = NA) mEq/L 134-147 POTASSIUM (test code = K) mEq/L 3.4-5.0 CHLORIDE (test code = CL) mEq/L 100-108 CARBON DIOXIDE (test code = CO2) mEq/L 21-33 ANION GAP (test code = GAP) 0-20 GLUCOSE (test code = GLU) mg/dL 70-110 BLOOD UREA NITROGEN (test code = BUN) mg/dL 7-18 GLOMERULAR FILTRATION RATE (test code = GFR) 90-95 CREATININE (test code = CREAT) mg/dL 0.6-1.3 TOTAL PROTEIN (test code = PROT) g/dL 6.4-8.2 ALBUMIN (test code = ALB) g/dL 3.4-5.0 CALCIUM (test code = CA) mg/dL 8.0-10.5 BILIRUBIN TOTAL (test code = BILT) MG/DL <1.5 SGOT/AST (test code = AST) IUnit/L 15-37 SGPT/ALT (test code = ALT) IUnit/L 15-65 ALKALINE PHOSPHATASE TOTAL (test code = ALKP) IUnit/L 20-125 [id number] 18:14:00* Test Item Value Reference Range Interpretation Comments LIPASE (test code = LIP) IUnit/L 73-393 HCG SERUM [id number] 18:14:00* Test Item Value Reference Range Interpretation Comments HCG SERUM QUAL (test code = HCGQL) SERUM NEGATIVE NEGATIVE TROPONIN-I [id number] 18:01:00* Test Item Value Reference Range Interpretation Comments TROPONIN-I RAPID (test code = TROPIRAP) 0.00 ng/mL 0.00-0.08 N Performed by certified gauge machine operator at [facility] Negative: <= 0.08 Positive: >= 0.09An elevated troponin value alone is not sufficient todiagnose a myocardial infarction. Rather, the patient sclinical presentation (history, physical exam) and ECGshould be used in conjunction with troponin in thediagnostic evaluation of suspected myocardial infarction. Aserial sampling protocol is recommended to facilitate the identification of temporal changes in troponin levels characteristic of [place]. LACTIC ACID [id number] 17:54:00* Test Item Value Reference Range Interpretation Comments LACTIC ACID POC (test code = LACTP) 2.3 MMOL/L 0.90-1.70 H Performed by certified gauge machine operator at [facility] BEDSIDE GLUCOSE [id number] 12:32:98782Bjhcfxqu ReyjjqcCZSOTXWWY6485-11-20 10:25:003.030[facility] RdfrxvbIWCKRGZIF5482-87-13 10:25:000.9[facility] SXGLLEMOB3052-71-58 10:25:008.5[facility] BqljxnfOBJNOQYZC4919-89-80 10:25:0022 [facility] WcrepnkIYKKLESHN0846-22-80 10:25:25774Cpbtxsap HermannCHEMISTRY 2011-09-05 10:25:008[facility] XvnwqdwACTFPLAFI6283-52-22 10:25:70730Cttleikb LqviqwoUYXLOXTQO0578-91-19 10:25:03688Plmbtzib AnwxbgjOADUAOLCB7268-81-30 10:25:003.9[facility] WdkahqtTINTJULRG5652-77-03 10:25:0017.9[facility] CMVMKVRYY0670-05-43 10:25:0058[facility] KibujawWMHHDIMWQ5176-74-93 10:25:23953 [facility] SxhdertEZPRKULAT0213-51-14 10:25:004.00[facility] HermannCHEMISTRY 2011-09-05 10:25:94708Gtmfszkh OcvjefiGBEWYGAPW7492-38-88 10:25:0039[facility] HdqwnkoZBVNLOUXIF7733-55-60 10:25:00* Test Item Value Reference Range Interpretation Comments MCH (test code = MCH) 32.4 pg 27.0-31.0 H [facility] FxetzjcXAAXQWGYHU4093-47-76 10:25:0012.6[facility] HermannHEMATOLOGY 2011-09-05 10:25:0033.9[facility] NqgnrasNDHOFQHNNX3356-77-91 10:25:93829Jqqzlvnp FrurzhpHJEWKPORCH7577-59-70 10:25:009.3[facility] NzqpkizRLZZFOXZNP0533-08-97 10:25:0095.8[facility] DhrmqsfOZBMHXPNTI6514-55-86 10:25:0037.5[facility] KZJNQOSFPO7536-44-34 10:25:0013.8[facility] OqwaiqmCOXPLUUKFB2773-88-40 10:25:00 3.92[facility] HctcqvqXACSYCTCYZ9684-55-03 10:25:0012.7[facility] HermannHEMATOLOGY 2011-09-05 10:25:002.2[facility] EjyjwfcEIKBBIVILJ0166-47-16 10:25:000.7[facility] ErpaklwEHPBJHVDPO7496-56-71 10:25:000.1[facility] IyrnoggIHCNQDOJCD7668-02-93 10:25:000.1[facility] CswufeqANUQZHEMFO5824-58-37 10:25:0078.4[facility] GLJIQQFGXS0465-55-24 10:25:0015.8[facility] QrhxdpeZWDLWZBBHU7741-26-26 10:25:00 5.0[facility] BuhfatqCACGMSANNG8512-63-96 10:25:000.4[facility] HermannHEMATOLOGY 2011-09-05 10:25:000.4[facility] CfwhavlOPCSVMLXYD6963-07-42 10:25:0010.8[facility] KqircakOLLWMIYOKN8578-26-36 09:30:00Negative (09/05/2011 04:30:00) [facility] TdpxszsUBEJVVGBKI2473-02-59 09:30:00Negative (09/05/2011 04:30:00) [facility] IftxhobOWSIHNNXAR2761-33-07 09:30:00Negative (09/05/2011 04:30:00) [facility] JjcylatCREZMJEVNX4805-04-51 09:30:000.2[facility] EerhwjuLCMHQYPBAL6700-69-99 09:30:00Negative *NA*(09/05/2011 04:30:00) [facility] RarygwrDGHOBULLMQ5163-09-54 09:30:00Negative mg/dL (09/05/2011 04:30:00) [facility] HermannURINALYSIS 2011-09-05 09:30:00Negative mg/dL (09/05/2011 04:30:00) [facility] BLEHRJWVTE4036-99-71 09:30:00* Test Item Value Reference Range Interpretation Comments UA pH (test code = UA pH) 6.0 1 5.0-8.0 N [facility] KuiexieMAMKWGPYBW6480-68-11 09:30:00Negative mg/dL *NA*(09/05/2011 04:30:00) [facility]UIPQNSG0981[facility]53-58 09:30:00Clear (09/05/2011 04:30:00) [facility]nvjthrOUVDEDEJHJ1846-40-27 09:30:00* Test Item Value Reference Range Interpretation Comments UA Spec Grav (test code = UA Spec Grav) 1.015 1 N [facility] RqgfydeNPCIUYIERH0734-66-33 09:30:00Yellow *NA*(09/05/2011 04:30:00) [facility]YdethcgERPPTPVOHY3343-75-97 09:30:00None Seen (09/05/2011 04:30:00) [facility]NedvltzMAVIMUENZJ4987-72-58 09:30:00None Seen (09/05/2011 04:30:00) [facility]burgDhlekcrDEENTSBGTO4380-25-52 09:30:00None Seen (09/05/2011 04:30:00) [facility] SvzqteqUSNDJXZXWL9108-37-47 09:30:00None Seen (09/05/2011 04:30:00) [facility]XtobgviFAVZYXUVLF6784-97-55 09:30:00Performed (09/05/2011 04:30:00) [facility] CibobmnUPQPAYMCT6298-17-79 04:45:00<0.02[facility] HermannCHEMISTRY 2011-09-05 04:45:0042[facility] HermannBEDSIDE GLUCOSE FYUUOGB4043-78-42 01:58:00 112[facility] HermannBEDSIDE GLUCOSE WTRBXYN0338-04-89 22:47:88310Fixqvizp [facility] WFHWDVCFN7584-30-38 22:05:00<0.02[facility] KhvvvsgDXISVPRIV7923-59-52 22:05:0068 [facility] IfqniwuLOPAJCMKK3485-90-86 16:14:00<0.9[facility] HermannCHEMISTRY 2011-09-04 16:14:001.8[facility] ApabejvDABYYELLU9032-33-69 16:14:00<0.5[facility] BfniqggZTLZUPNUA9165-58-83 16:14:0055[facility] TdhsceqHGYHLBFAL7561-60-57 16:14:00<0.02[facility] GwhlpjsHPRVWNXPX6781-98-61 16:14:0010[facility] VBTQOYQHJ0227-46-01 16:14:00Negative *NA*(09/04/2011 11:14:00) [facility] PFMPOLTVS0155-84-20 16:14:000.4[facility] ShbffanXGBZNLOUH9638-71-97 16:14:003.9 [facility] YpvzinyPWJNRXCVB1740-21-73 16:14:0014[facility] HermannCHEMISTRY 2011-09-04 16:14:000.9[facility] IoipiguCHJKVTDWA4828-66-47 16:14:007.6[facility] KwxzmmfPYOEBYPPO4974-07-89 16:14:0093[facility] ElzhxipCQJJDOBHQ3374-58-87 16:14:0033[facility] BjmoubeUHSTMDNOJ4167-67-27 16:14:003.7[facility] RZYXLXVVO0624-42-23 16:14:008.9[facility] ZlkmsfaNOFYIIFJJ6745-70-97 16:14:0015.6 [facility] KvrhjdcQYVIOYLZL1695-49-24 16:14:009[facility] FxgbivjRIMYRKYVT3736-76-01 16:14:008[facility] QwuwihdLPQAWMGMQ7976-26-48 16:14:77085[facility] VAGKYCWSD5887-39-86 16:14:06102Zidhjsst TpgagtbEXMPVLSCB9020-83-21 16:14:14369 [facility] IpovboeBZZKHMFHD9543-02-46 16:14:000.9[facility] HermannCHEMISTRY 2011-09-04 16:14:0023[facility] PaxloqvNZAQTTUHM9536-35-50 16:14:003.6[facility] GkkwauqTWVTNQGFOT9174-18-80 16:14:000.0[facility] WhgzjxkKHINFCDSCA0486-22-90 16:14:000.0[facility] FhnxnbcPQCAFSZTAS0514-57-05 16:14:003.1[facility] OBTREKPWNX2637-36-44 16:14:000.5[facility] PmdvgsyWFKXLNHZZB9016-05-62 16:14:000.4 [facility] AdnlpzkPLPOVDCQMW0387-27-20 16:14:006.6[facility] HermannHEMATOLOGY 2011-09-04 16:14:000.4[facility] GtvjclwKCOMNKAVQV4619-57-33 16:14:0029.9[facility] IuhqmlqUBJVBFTJQD1867-48-95 16:14:005.0[facility] BcnfeyuZBVGDLVNOR9514-13-40 16:14:0064.3[facility] XievdylJFWSHMUSAT3019-59-78 16:14:000.96[facility] PWXNFIGFCH0976-79-85 16:14:00* Test Item Value Reference Range Interpretation Comments PT (test code = PT) 12.8 s 12.0-14.7 N [facility] LwychhpQNDHPSLTFC1791-96-59 16:14:00* Test Item Value Reference Range Interpretation Comments PTT (test code = PTT) 26.1 s 22.9-35.8 N [facility] CbamyyvNCJOCQTXSR6391-55-43 16:14:004.28[facility] HermannHEMATOLOGY 2011-09-04 16:14:0010.2[facility] SvtixhrIIGGPUGPFY2456-03-08 16:14:0041.1[facility] LlljohzXHCJPLWROS3592-97-97 16:14:0013.8[facility] AodkxmvRCCNFOUOIP3516-33-26 16:14:0033.6[facility] WjixcqtRGWTQAXTGN4789-24-70 16:14:00* Test Item Value Reference Range Interpretation Comments MCH (test code = MCH) 32.3 pg 27.0-31.0 H [facility] MxhtnxpTZJUEVRUPT6646-48-62 16:14:0096.1[facility] HermannHEMATOLOGY 2011-09-04 16:14:009.5[facility] TpytylmMITOCCTOUP5433-05-91 16:14:69755Ygzocnqp UlkgwxyWLBDCACEHE3950-85-74 16:14:0012.6[facility]
--- OUTSIDE RECORDS SUMMARY | 2019-12-25 10:45 | XMS REPORT | CCD ---
Author Author Auto CARLOTTA Hart Organization [facility] Address Unknown Phone Unavailable Care Team Providers Care Automation Application Engineer Name Role Phone Xavier Perry CP Allergies, Adverse Reactions, Alerts Substance Reaction Status NKDA Active Problem List Condition Effective Dates Status Chest pain Active DM - Diabetes mellitus Active Medications Medication Instructions Start Date End Date Status Saline Flush 0.9% 5 ml, Route: IVP, Drug Form: INJ, 09/04/2011 09/05/2011 Discontinued Q12H, Start date: 09/04/11 21:00:00, Duration: 30 day, Stop date: 10/04/11 9:00:00 Saline Flush 0.9% 5 ml, Route: IVP, Drug Form: INJ, 09/04/2011 09/05/2011 Discontinued PRN, PRN Line Flush, Start date: 09/04/11 14:46:00, Duration: 30 day, Stop date: 10/04/11 14:45:00 morphine Sulfate 2 mg, 1 mL, Route: IVP, Drug form: 09/04/2011 09/05/2011 Discontinued INJ, Q2H, PRN Pain, Start date: 09/04/11 14:46:00, Duration: 30 day, Stop date: 10/04/11 14:45:00 nitroglycerin SL Tab 0.4 mg, 1 tab, Route: SL, Drug 09/04/2011 09/05/2011 Discontinued form: TAB, Q5Min, PRN Chest Pain, Start date: 09/04/11 14:46:00, Duration: 3 doses or times, Stop date: Limited # of times nitroglycerin 2% 1 inch, Route: TOP, Drug Form: 09/04/201105/2011 Discontinued ointment OINT, TID, Start date: 08/07 17:00:00, Duration: 30 day, Stop date: 10/04/11 13:00:00 aspirin 325 mg 325 mg, 1 tab, Route: PO, Drug 09/05/201109/04 Discontinued tablet, enteric form: ECTAB, Daily, Start d ate: coated 09/05/11 9:00:00, Duration: 30 day, Stop date: 10/04/11 9:00:00 metoprolol tartrate 25 mg, 1 tab, Route: PO, Drug form: 09/0309/05/2011 Discontinued TAB, Q6H, Start date: 09/04/11 18:00:00, Duration: 30 day, Stop date: 10/04/11 12:00:00 atropine 0.5 mg, 5 mL, Route: IVP, Drug 09/04/2011 09/05/19 Discontinued form: INJ, PRN, PRN Bradycardia, Start date: 09/04/11 15:39:00, Duration: 30 day, Stop date: 10/04/11 15:38:00 metoprolol tartrate 25 mg, Route: PO, Drug form: TAB, 09/04/2011 09/04/2011 Completed ONCE, Priority: STAT, Start date: 09/04/11 11:16:00, Stop date: 09/04/11 11:16:00 nitroglycerin 2% 1 inch, Route: TOP, Drug Form: 09/04/2011 Completed ointment OINT, ONCE, STAT, Start eleazar e: 09/04/11 11:16:00, Stop date: 09/04/11 11:16:00 Sodium Chloride 0.9% 500 mL, Rate: 500 ml/hr, Infuse 09/04/2011 09/04/2011 Completed (Bolus) IV 500 mL over: 1 hr, Route: IV, kg, Total Volume: 500, Bolus Dose, Priority: STAT, Start date: 09/04/11 11:16:00, Duration: 1 doses or times, Stop date: 09/04/11 12:15:00 acetaminophen 650 mg, Route: PO, Drug form: TAB, 09/04/2011 Completed ONCE, PRN Pain, Priority: STAT, Start date: 09/04/11 15:06:00, Stop date: 10/04/11 15:05:00 metFORmin 500 mg 500 mg, 1 tab, PO, Daily, 30 tab, 09/04/2011 Ordered oral tablet Substitution Allowed insulin aspart 5 unit, 0.05 mL, Route: SUB-Q, Drug 09/04/2011 09/05/2011 Discontinued form: SOLN, TID-Before Meals, PRN Blood Glucose Results, Start date: 09/04/11 14:46:00, Duration: 30 day, Stop date: 10/04/11 14:45:00 insulin aspart 4 unit, 0.04 mL, Route: SUB-Q, Drug 09/04/2011 09/05/2011 Discontinued form: SOLN, TID-Before Meals, PRN Blood Glucose Results, Start date: 09/04/11 14:46:00, Duration: 30 day, Stop date: 10/04/11 14:45:00 insulin aspart 3 unit, 0.03 mL, Route: SUB-Q, Drug 09/04/2011 09/05/2011 Discontinued form: SOLN, TID-Before Meals, PRN Blood Glucose Results, Start date: 09/04/11 14:46:00, Duration: 30 day, Stop date: 10/04/11 14:45:00 insulin aspart 2 unit, 0.02 mL, Route: SUB-Q, Drug 09/04/2011 09/05/2011 Discontinued form: SOLN, TID-Before Meals, PRN Blood Glucose Results, Start date: 09/04/11 14:46:00, Duration: 30 day, Stop date: 10/04/11 14:45:00 insulin aspart 1 unit, 0.01 mL, Route: SUB-Q, Drug 09/04/2011 09/05/2011 Discontinued form: SOLN, TID-Before Meals, PRN Blood Glucose Results, Start date: 09/04/11 14:46:00, Duration: 30 day, Stop date: 10/04/11 14:45:00 Dextrose 50% Syringe 12.5 gm, 25 mL, Route: IVP, Drug 09/04/2011 09/05/2011 Discontinued Form: INJ, PRN, PRN Blood Glucose Results, Start date: 09/04/11 14:46:00, Duration: 30 day, Stop date: 10/04/11 14:45:00 glucagon 1 mg, Route: IM, Drug form: 09/04/2011 09/05/2011 Discontinued PDR/INJ, PRN, PRN Blood Glucose Results, Start date: 09/04/11 14:46:00, Duration: 30 day, Stop date: 10/04/11 14:45:00 Dextrose 50% Syringe 25 gm, 50 mL, Route: IVP, Drug 09/04/2011 09/05/2011 Discontinued Form: INJ, PRN, PRN Blood Glucose Results, Start date: 09/04/11 14:46:00, Duration: 30 day, Stop date: 10/04/11 14:45:00 Saline Flush 0.9% 5 ml, Route: IVP, Drug Form: INJ, 09/04/2011 09/05/2011 Discontinued PRN, PRN Line Flush, Start date: 09/04/11 14:48:00, Duration: 30 day, Stop date: 10/04/11 14:47:00 ondansetron 4 mg, 2 mL, Route: IVP, Drug form: 09/04/201105/2011 Discontinued INJ, Q6H, PRN Nausea & Vomiting, Start date: 09/04/11 14:48:00, Duration: 30 day, Stop date: 10/04/11 14:47:00 ALPRAZOLam 0.25 mg, 1 tab, Route: PO, Drug 09/04/2011 012 Discontinued form: TAB, Q8H, PRN Anxiety, Start date: 09/04/11 14:48:00, Duration: 30 day, Stop date: 10/04/11 14:47:00 morphine Sulfate 2 mg, 1 mL, Route: IVP, Drug form: 09/04/2011 09/05/2011 Discontinued INJ, Q3H, PRN Pain Score 4-6, Start date: 09/04/11 14:48:00, Duration: 30 day, Stop date: 10/04/11 14:47:00 acetaminophen 650 mg, 2 tab, Route: PO, Drug 09/04/20112011 Discontinued form: TAB, Q4H, PRN Pain/Fever, Start date: 09/04/11 14:48:00, Duration: 30 day, Stop date: 10/04/11 14:47:00 acetaminophen-hydroc 1 tab, Route: PO, Drug Form: TAB, 201109/05/2011 Discontinued odone 325 mg-5 mg Q4H, PRN Pain Score 1-3, St art oral tablet date: 09/04/11 14:48:00, Du ration: 30 day, Stop date: 10/04/11 14:47:00 Vital Signs Most recent to oldest [Reference Range]: 1 2 3 Height 162.56 cm (09/04/2011 10:56:00) Temperature Oral [96.4-99.1 DegF] 98.5 DegF (09/05/2011 08:00:00) 98.8 DegF (09/05/2011 04:00:00) 98.3 DegF (09/05/2011 00:00:00) Systolic Blood Pressure [90-140 mmHg] 108 mmHg (09/05/2011 08:00:00) 117 mmHg (09/05/2011 04:00:00) 109 mmHg (09/05/2011 00:00:00) Diastolic Blood Pressure [60-90 mmHg] 75 mmHg (09/05/2011 08:00:00) 75 mmHg (09/05/2011 04:00:00) 65 mmHg (09/05/2011 00:00:00) Respiratory Rate [14-20 BRMIN] 20 BRMIN (09/05/2011 08:00:00) 18 BRMIN (09/05/2011 04:00:00) 18 BRMIN (09/05/2011 00:00:00) Peripheral Pulse Rate [60-100 bpm] 85 bpm (09/05/2011 08:00:00) 71 bpm (09/05/2011 04:00:00) 71 bpm (09/05/2011 00:00:00) Weight 79.545 kg (09/04/2011 10:56:00) Results BEDSIDE GLUCOSE TESTING Most recent to oldest [Reference Range]: 1 2 3 Gluc POC Lifscn [70-99 mg/dL] 141 mg/dL 1 *HI* (09/05/2011 07:32:00) 112 mg/dL 2 *HI* (09/04/2011 20:58:00) 105 mg/dL 3 *HI* (09/04/2011 17:47:00) Comment1 Notify RN/MD *NA* (09/05/2011 07:32:00) Notify RN/MD *NA* (09/04/2011 20:58:00) Notify RN/MD *NA* (09/04/2011 17:47:00) 1Interpretive Data: Upper Reportable Limit: 200 mg/dL. 2Interpretive Data: Upper Reportable Limit: 200 mg/dL. 3Interpretive Data: Upper Reportable Limit: 200 mg/dL. URINALYSIS Most recent to oldest [Reference Range]: 1 2 3 UA Turbidity [Clear] Clear (09/05/2011 04:30:00) UA Color [Yellow] Yellow *NA* (09/05/2011 04:30:00) UA pH [5.0-8.0] 6.0 (09/05/2011 04:30:00) UA Spec Grav [<=1.030] 1.015 (09/05/2011 04:30:00) UA Glucose [Negative mg/dL] Negative mg/dL (09/05/2011 04:30:00) UA Blood [Negative] Negative (09/05/2011 04:30:00) UA Ketones [Negative mg/dL] Negative mg/dL *NA* (09/05/2011 04:30:00) UA Protein [Negative mg/dL] Negative mg/dL (09/05/2011 04:30:00) UA Urobilinogen [0.1-1.0 EU/dL] 0.2 EU/dL (09/05/2011 04:30:00) UA Bili [Negative] Negative *NA* (09/05/2011 04:30:00) UA Leuk Est [Negative] Negative (09/05/2011 04:30:00) UA Nitrite [Negative] Negative (09/05/2011 04:30:00) UA WBC [None Seen] None Seen (09/05/2011 04:30:00) UA RBC [0-2] None Seen (09/05/2011 04:30:00) UA Bacteria [None Seen] None Seen (09/05/2011 04:30:00) UA Sq Epi [Few] None Seen (09/05/2011 04:30:00) Micro? Performed (09/05/2011 04:30:00) CHEMISTRY Most recent to oldest [Reference Range]: 1 2 3 Sodium Lvl [135-145 mEq/L] 138 mEq/L (09/05/2011 05:25:00) 141 mEq/L (09/04/2011 11:14:00) Potassium Lvl [3.5-5.1 mEq/L] 3.9 mEq/L (09/05/2011 05:25:00) 3.6 mEq/L (09/04/2011 11:14:00) Chloride Lvl [95-109 mEq/L] 102 mEq/L (09/05/2011 05:25:00) 106 mEq/L (09/04/2011 11:14:00) CO2 [24-32 mEq/L] 22 mEq/L *LOW* (09/05/2011 05:25:00) 23 mEq/L *LOW* (09/04/2011 11:14:00) AGAP [10.0-20.0 mEq/L] 17.9 mEq/L (09/05/2011 05:25:00) 15.6 mEq/L (09/04/2011 11:14:00) Creatinine Lvl [0.5-1.4 mg/dL] 0.9 mg/dL (09/05/2011 05:25:00) 0.9 mg/dL (09/04/2011 11:14:00) BUN [7-22 mg/dL] 8 mg/dL (09/05/2011 05:25:00) 8 mg/dL (09/04/2011 11:14:00) B/C Ratio [6-25] 9 (09/04/2011 11:14:00) Glucose Lvl [70-99 mg/dL] 134 mg/dL 4 *HI* (09/05/2011 05:25:00) 114 mg/dL 5 *HI* (09/04/2011 11:14:00) Total Protein [6.4-8.4 g/dL] 7.6 g/dL (09/04/2011 11:14:00) Albumin Lvl [3.5-5.0 g/dL] 3.7 g/dL (09/04/2011 11:14:00) Globulin [2.0-4.0 g/dL] 3.9 g/dL (09/04/2011 11:14:00) A/G Ratio [0.7-1.6] 0.9 (09/04/2011 11:14:00) Calcium Lvl [8.5-10.5 mg/dL] 8.5 mg/dL (09/05/2011 05:25:00) 8.9 mg/dL (09/04/2011:14:00) Magnesium Lvl [1.8-2.4 mg/dL] 1.8 mg/dL (09/04/2011 11:14:00) ALT [0-65 U/L] 33 U/L (09/04/2011:14:00) AST [0-37 U/L] 14 U/L (09/04/2011:14:00) Alk Phos [39-136 U/L] 93 U/L (09/04/2011:14:00) Bili Total [0.2-1.3 mg/dL] 0.4 mg/dL (09/04/2011 11:14:00) Total CK [12-191 U/L] 42 U/L (09/04/2011 23:45:00) 68 U/L (09/04/2011 17:05:00) 55 U/L (09/04/2011 11:14:00) CK MB [0.5-3.6 ng/mL] <0.5 ng/mL (09/04/2011 11:14:00) CK MB Index [0.0-2.5] <0.9 (09/04/2011:14:00) Troponin-I [0.00-0.40 ng/mL] <0.02 ng/mL (09/04/2011 23:45:00) <0.02 ng/mL (09/04/2011 17:05:00) <0.02 ng/mL (09/04/2011 11:14:00) BNP [<=100 pg/mL] 10 pg/mL 6 (09/04/2011 11:14:00) CHD Risk [3.90-5.80] 4.00 (09/05/2011 05:25:00) Chol [120-200 mg/dL] 156 mg/dL (09/05/2011 05:25:00) Trig [0-200 mg/dL] 294 mg/dL *HI* (09/05/2011 05:25:00) HDL [>=35 mg/dL] 39 mg/dL (09/05/2011 05:25:00) LDL [0-129 mg/dL] 58 mg/dL (09/05/2011 05:25:00) TSH [0.360-3.740 uIU/mL] 3.030 uIU/mL (09/05/2011 05:25:00) S Preg [Negative] Negative *NA* (09/04/2011 11:14:00) 4Interpretive Data: Adult reference range values reflect the clinical guidelinesof the [place] [employer]. 5Interpretive Data: Adult reference range values reflect the clinical guidelinesof the [place] [employer]. 6Interpretive Data: Elevated results are in line with increasing severity of congestive heart failure. Minor elevations between 100 and 300 may be seen with Myocardial Ischemia, Sodium retaining drugs, and compensated/treated heart failure. HEMATOLOGY Most recent to oldest [Reference Range]: 1 2 3 WBC [3.7-10.4 K/CMM] 13.8 K/CMM *HI* (09/05/2011 05:25:00) 10.2 K/CMM (09/04/2011 11:14:00) RBC [4.20-5.40 M/CMM] 3.92 M/CMM *LOW* (09/05/2011 05:25:00) 4.28 M/CMM (09/04/2011 11:14:00) Hgb [12.0-16.0 g/dL] 12.7 g/dL (09/05/2011 05:25:00) 13.8 g/dL (09/04/2011 11:14:00) Hct [36.0-48.0 %] 37.5 % (09/05/2011 05:25:00) 41.1 % (09/04/2011 11:14:00) MCV [81.0-99.0 fL] 95.8 fL (09/05/2011 05:25:00) 96.1 fL (09/04/2011 11:14:00) MCH [27.0-31.0 pg] 32.4 pg *HI* (09/05/2011 05:25:00) 32.3 pg *HI* (09/04/2011 11:14:00) MCHC [32.0-36.0 g/dL] 33.9 g/dL (09/05/2011 05:25:00) 33.6 g/dL (09/04/2011 11:14:00) RDW [11.5-14.5 %] 12.6 % (09/05/2011 05:25:00) 12.6 % (09/04/2011 11:14:00) Platelet [133-450 K/CMM] 275 K/CMM (09/05/2011 05:25:00) 311 K/CMM (09/04/2011 11:14:00) MPV [7.4-10.4 fL] 9.3 fL (09/05/2011 05:25:00) 9.5 fL (09/04/2011 11:14:00) Segs [45.0-75.0 %] 78.4 % *HI* (09/05/2011 05:25:00) 64.3 % (09/04/2011 11:14:00) Lymphocytes [20.0-40.0 %] 15.8 % *LOW* (09/05/2011 05:25:00) 29.9 % (09/04/2011 11:14:00) Monocytes [2.0-12.0 %] 5.0 % (09/05/2011 05:25:00) 5.0 % (09/04/2011 11:14:00) Eosinophils [0.0-4.0 %] 0.4 % (09/05/2011 05:25:00) 0.4 % (09/04/2011 11:14:00) Basophils [0.0-1.0 %] 0.4 % (09/05/2011 05:25:00) 0.4 % (09/04/2011 11:14:00) Segs-Bands # [1.5-8.1 K/CMM] 10.8 K/CMM *HI* (09/05/2011 05:25:00) 6.6 K/CMM (09/04/2011 11:14:00) Lymphocytes # [1.0-5.5 K/CMM] 2.2 K/CMM (09/05/2011 05:25:00) 3.1 K/CMM (09/04/2011 11:14:00) Monocytes # [0.0-0.8 K/CMM] 0.7 K/CMM (09/05/2011 05:25:00) 0.5 K/CMM (09/04/2011 11:14:00) Eosinophils # [0.0-0.5 K/CMM] 0.1 K/CMM (09/05/2011 05:25:00) 0.0 K/CMM (09/04/2011 11:14:00) Basophils # [0.0-0.2 K/CMM] 0.1 K/CMM (09/05/2011 05:25:00) 0.0 K/CMM (09/04/2011 11:14:00) PT [12.0-14.7 seconds] 12.8 seconds (09/04/2011 11:14:00) INR [0.85-1.17] 0.96 7 (09/04/2011 11:14:00) PTT [22.9-35.8 seconds] 26.1 seconds 8 (09/04/2011 11:14:00) 7Interpretive Data: RECOMMENDED RANGES FOR PROTIME INR: 2.0-3.0 for most medical and surgical thromboembolic states. 2.5-3.5 for artificial heart valves and recurrent embolism.INR SHOULD BE USED ONLY FOR PATIENTS ON STABLE ANTICOAGULANT THERAPY. 8Interpretive Data: Heparin Therapeutic Range: 57 - 92 Seconds
--- NOTE | 2019-12-25 10:47 | Emergency Department Note ---
History of Present Illnes History of Present Illness Chief Complaint: Skin Rash or Abscess History of Present Illness This is a 54 year old female, with a history of NIDDM, who awoke this morning and noticed some redness of the medial aspect of her left breast. Since she awoke this morning, the redness has traveled superior, up the left breast, and it is tender to touch. She denies any trauma, nipple discharge, or . Patient states her last mammogram was approximately one year ago. Her mom had breast cancer at 69 years old. 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 Historian: Patient Arrival Mode: Car Dealership General Manager Required: No (4) Onset (how long ago): hour(s) (4 ) Location: left breast Quality: aching Radiation: Reports other (radiating superiorly, up the medial aspect of the left breast. ) Severity: mild Onset quality: sudden Duration (how long): hour(s) (4) Timing of current episode: constant Progression: worsening Chronicity: new Context: Denies recent illness, Denies trauma/injury Relieving factors: none Exacerbating factors: none Associated symptoms: Denies chest pain, Denies fever/chills, Denies nausea/vomiting, Denies rash, Denies shortness of breath Treatments prior to arrival: none Risk factors: Diabetes Past Medical/Family History Physician Review I have reviewed the patient's past medical and family history. Any updates have been documented here. Past Medical History Recent Fever: No Clinical Suspicion of Infectio: No New/Unexplained Change in Ment: No Past Medical History: Diabetes (NIDDM) Past Surgical History: Tubal Ligation, Orthopedic Implants Other Surgery: Uterine ablation ORIF Left humerus Left knee Social History Smoking Cessation: Never Smoker Counseling Performed: No Alcohol Use: Occasional Any Illegal Drug Use: No TB Exposure/Symptoms: No Physically hurt or threatened: No Family History Family history of heart diseas: No Other Last Tetanus: u Any Pre-Existing Lines (PICC,: No Is patient up to date on immun: No Review of Systems Review of Systems Constitutional: Denies chills, Denies fever, Denies malaise EENTM: Reports no symptoms Cardiovascular: Denies chest pain, Denies edema Respiratory: Reports no symptoms Gastrointestinal: Reports no symptoms; Denies nausea, Denies vomiting Genitourinary: Reports no symptoms Musculoskeletal: Reports no symptoms Integumentary: Reports as per HPI Review of other systems: All other systems negative Physical Exam Related Data Allergies: Coded Allergies: No Known Allergies (Unverified , 05/22/19) Triage Vital Signs Vital Signs Date Time Temp Pulse Resp B/P (MAP) Pulse Ox O2 Delivery O2 Flow Rate FiO2 12/25/19 10:01 98.0 87 16 129/87 98 Room Air Vital signs reviewed: Yes Physical Exam CONSTITUTIONAL Constitutional: Present well-developed, Present well-nourished; Absent distressed, Absent ill appearing HENT HENT: Present normocephalic, Present atraumatic, Present oropharynx clear/moist, Present nose normal HENT L/R: Present left ext ear normal, Present right ext ear normal EYES Eyes: Reports PERRL, Reports conjunctivae normal NECK Neck: Present ROM normal, Present supple; Absent cervical adenopathy PULMONARY Pulmonary: Present effort normal, Present breath sounds normal CARDIOVASCULAR Cardiovascular: Present regular rhythm, Present heart sounds normal, Present capillary refill normal, Present normal rate GASTROINTESTINAL Abdominal: Present soft, Present nontender, Present bowel sounds normal GENITOURINARY SKIN Skin: Present warm, Present erythema (round area of erythema overlying the medial aspect of left breast, partially involving the areola, with a red streak spreading superiorly (lymphangitic spread), with associated ttp, mild warmth, no fluctuance; ), Present other (Breasts appear symmetric; Left breast - no focal masses, + tenderness beneath the area of erythema; no palpable lymph nodes or tenderness of the left axilla;) MUSCULOSKELETAL Musculoskeletal: Present ROM normal; Absent edema, Absent tenderness, Absent swelling NEUROLOGICAL Neurological: Present alert, Present oriented x 3, Present no gross motor or sensory deficits PSYCHOLOGICAL Psychological: Present mood/affect normal, Present judgement normal Assessment & Plan Medical Decision Making MDM - Take antibiotics as prescribed, and complete them. Taken with food. You may also consider a Probiotic such as "Align," to help with any GI upset. - Keep your appointment, as scheduled, with your ANIMAL SCIENCE PROFESSOR next week. - Verify your Mammogram appointment, and if it is not scheduled for this month, please attempt to schedule sooner. - Follow-up, if you develop worsening redness, swelling of the breast, fever, chills, nausea, or vomiting. Assessment & Plan Final Impression: (1) Cellulitis of breast (2) Mastitis, left, acute (3) Diabetes mellitus Depart Disposition: HOME, SELF-CARE Last Vital Signs Date Time Temp Pulse Resp B/P (MAP) Pulse Ox O2 Delivery O2 Flow Rate FiO2 12/25/19 10:01 98.0 87 16 129/87 98 Room Air Home Meds Active Scripts Clindamycin Hcl (CLINDAMYCIN HCL) 150 Mg Capsule, 300 MG PO TID for infection for 10 Days, #30 TAB 0 Refills 2 TABS PO TID Prov:CRUZ MCCARTHY MD 12/25/19 Cephalexin (CEPHALEXIN) 500 Mg Capsule, 1 TAB PO TID for infection for 10 Days, #30 CAP 0 Refills Prov:CRUZ MCCARTHY MD 12/25/19 Medications in the ED Trimethoprim/ Sulfamethoxazole 1 ea STK-MED ONCE .ROUTE ; Start 12/25/19 at 10:32; Stop 12/25/19 at 10:26; Status DC Trimethoprim/ Sulfamethoxazole 1 ea ONCE ONCE PO Last administered on 12/25/19at 10:28; Admin Dose 1 EA; Start 12/25/19 at 10:45; Stop 12/25/19 at 10:46; Status UNV CRUZ MCCARTHY MD Dec 25, 2019 10:47
== END 2019-12-25 10:37 | disposition home or self-care (01) ==
LOC: FSED 10:25
DX: N61.0 Mastitis without abscess (principal); E11.9 Type 2 diabetes mellitus without complications
CPT/HCPCS: 99283

== ENCOUNTER → 2020-01-07 | Outpatient (CLI) | payer BC ==
[~2020-01-07] MED LIST: CEPHALEXIN500 MG PO; CLINDAMYCIN HC150 MG PO
[2020-01-07 08:14] LABS: CHOL/HDL RATIO 5.1 (3.0-3.6); CHOLESTEROL 224 MD/DL (0-199); HDL CHOLESTEROL 44 MG/DL (40-60); TRIGLYCERIDES 611 MG/DL (0-149)
== END ==
LOC: LAB 07:32
PROVIDERS: ATTEND Internal Medicine
DX: E11.65 Type 2 diabetes mellitus with hyperglycemia (principal); E78.1 Pure hyperglyceridemia; Z68.31 Body mass index [BMI] 31.0-31.9, adult
CPT/HCPCS: 36415; 80061; 83036

== ENCOUNTER → 2020-02-18 | Outpatient (CLI) | payer BC ==
--- NOTE | 2020-02-19 08:26 | Diagnostic Imaging Report ---
#[id number] - USBRELIMLT ULTRASOUND OF THE LEFT BREAST : 02/18/2020 Comparison is made to exam dated: 02/18/2020 mammogram - [facility]. Color flow and real-time ultrasound were performed on the left breast. No abnormalities were seen sonographically in the left axilla. There are no solid or cystic masses identified. Benign node is present at 2 o'clock. IMPRESSION: BENIGN There is no sonographic evidence of malignancy. A 1 year screening mammogram is recommended. BEN TEIXEIRA M.D. ct/penrad:02/18/2020 16:11:11 Heel Stainer: Schuyler Mccormack RDOR, [facility] letter sent: Normal Exam Ultrasound BI-RADS: 2 Benign
--- NOTE | 2020-02-19 08:26 | Diagnostic Imaging Report ---
#[id number] - MGDXBIL #BILATERAL DIGITAL DIAGNOSTIC MAMMOGRAM WITH CAD: 02/18/2020 No prior exams were available for comparison. Current study contains 8 films. There are scattered fibroglandular elements in both breasts. Current study was also evaluated with a Computer Aided Detection (CAD) system. Benign calcification is present in the right breast. There is a benign intramammary node in the left breast. No significant masses, calcifications, or other findings are seen in either breast. IMPRESSION: BENIGN See the report for ultrasound performed the same day for additional details. There is no mammographic evidence of malignancy. A 1 year screening mammogram is recommended. An addendum will be made if requested prior exams are received. BEN TEIXEIRA M.D. ct/:02/18/2020 16:10:23 Tractor Mechanic Apprentice: Brit MUÑIZ(Hoda)(Richard), [facility] letter sent: Normal Exam Mammogram BI-RADS: 2 Benign
== END ==
LOC: MAMMO 12:48
PROVIDERS: ATTEND Physician Assistant
DX: N64.4 Mastodynia (principal)
CPT/HCPCS: 77066

== ENCOUNTER → 2020-05-03 | Outpatient (CLI) | payer OTHER ==
[~2020-05-03] MED LIST changes: +COVID-19 VACC, MRNA(MODERNA)/PF 100 MCG/0.5 ML VIAL IM ONE
== END ==
LOC: VACCPMC 10:49
DX: Z23 Encounter for immunization (principal); Z20.828 Contact with and (suspected) exposure to other viral communicable diseases

== ENCOUNTER → 2020-05-04 | Outpatient (CLI) | payer OTHER ==
[~2020-05-04] MED LIST changes: -COVID-19 VACC, MRNA(MODERNA)/PF 100 MCG/0.5 ML VIAL IM ONE
== END ==
LOC: VACCPMC 01:36
DX: Z23 Encounter for immunization (principal); Z20.828 Contact with and (suspected) exposure to other viral communicable diseases

== ENCOUNTER → 2020-06-10 | Outpatient (CLI) | payer OTHER ==
[~2020-06-10] MED LIST changes: +COVID-19 VACC, MRNA(MODERNA)/PF 100 MCG/0.5 ML VIAL IM ONE
== END | DRG 951 ==
LOC: VACCPMC 07:30
DX: Z23 Encounter for immunization (principal); Z20.822 Contact with and (suspected) exposure to COVID-19
CPT/HCPCS: 0012A; 91301